=== PATIENT | female | born 1955 | race African-American/Black ===

== ENCOUNTER 2016-06-25 00:03 | Inpatient (IN) | payer MEDICARE ==
[~2016-06-25] VITALS: Ht 152.4 cm; Wt 67.1 kg
[2016-06-25 00:30] VITALS: BP 125/72
[2016-06-25] MEDS ORDERED: ACETAMINOPHEN 325 MG TABLET PO PRN (01:00)
[2016-06-25] MEDS ORDERED: MAG HYDROX/AL HYDROX/SIMETH 30 ML UDC PO PRN (01:00)
[2016-06-25] MEDS ORDERED: MAGNESIUM HYDROXIDE 30 ML UDC PO PRN (01:00)
[2016-06-25] MEDS ORDERED: PRAV40TA3 PO (06:33)
[2016-06-25] MEDS ORDERED: BENZ1TAB7 PO (06:33)
[2016-06-25 08:17] LABS: ALBUMIN 3.2 g/dL (3.4-5.0); BILIRUBIN,TOTAL 0.4 mg/dL (0.2-1.0); CALCIUM, SERUM 8.4 mg/dL (8.5-10.1); CREATININE 0.8 mg/dL (0.6-1.3); POTASSIUM 3.6 mmol/L (3.5-5.1); TOTAL PROTEIN, SERUM 6.1 g/dL (6.4-8.2)
[2016-06-25 09:24] VITALS: BP 100/67
[2016-06-25] MEDS: BENZTROPINE MESYLATE (1 MG) 1 MG TABLET PO SCH ×2 (14:28→16:34)
[2016-06-25] MEDS: risperiDONE 1 MG TABLET PO SCH ×2 (14:28→16:34)
[2016-06-25 15:45] VITALS: BP 106/62
[2016-06-25] MEDS: DIVALPROEX SODIUM 250 MG TABLET.DR PO SCH (16:34)
[2016-06-25 20:00] VITALS: BP 105/64
[2016-06-26] MEDS: TEMAZEPAM 7.5 MG CAPSULE PO PRN (00:52)
[2016-06-26 08:00] VITALS: BP 132/67
[2016-06-26] MEDS: DIVALPROEX SODIUM 250 MG TABLET.DR PO SCH ×3 (08:24→16:20)
[2016-06-26] MEDS: risperiDONE 1 MG TABLET PO SCH ×2 (08:24→16:20)
[2016-06-26] MEDS: BENZTROPINE MESYLATE (1 MG) 1 MG TABLET PO SCH ×2 (08:24→16:20)
[2016-06-26 16:00] VITALS: BP 103/53
[2016-06-26 20:00] VITALS: BP 96/54
[2016-06-27 08:00] VITALS: BP 122/68
[2016-06-27] MEDS: DIVALPROEX SODIUM 250 MG TABLET.DR PO SCH ×3 (08:47→16:54)
[2016-06-27] MEDS: risperiDONE 1 MG TABLET PO SCH ×3 (08:47→17:00)
[2016-06-27] MEDS: BENZTROPINE MESYLATE (1 MG) 1 MG TABLET PO SCH ×2 (08:47→16:54)
[2016-06-27 16:00] VITALS: BP 106/62
[2016-06-27 20:00] VITALS: BP 121/77
[2016-06-27] MEDS: TEMAZEPAM 7.5 MG CAPSULE PO PRN (23:32)
[2016-06-28 08:00] VITALS: BP 134/70
[2016-06-28] MEDS: BENZTROPINE MESYLATE (1 MG) 1 MG TABLET PO SCH ×2 (09:20→17:57)
[2016-06-28] MEDS: DIVALPROEX SODIUM 250 MG TABLET.DR PO SCH ×3 (09:20→17:57)
[2016-06-28] MEDS: risperiDONE 1 MG TABLET PO SCH ×2 (09:20→17:57)
[2016-06-28 16:00] VITALS: BP 98/56
[2016-06-28 20:00] VITALS: BP 102/67
[2016-06-28] MEDS: TEMAZEPAM 7.5 MG CAPSULE PO PRN (21:03)
[2016-06-29 08:00] VITALS: BP 120/69
[2016-06-29] MEDS: DIVALPROEX SODIUM 250 MG TABLET.DR PO SCH ×4 (08:37→17:15)
[2016-06-29] MEDS: risperiDONE 1 MG TABLET PO SCH ×2 (08:37→17:15)
[2016-06-29] MEDS: BENZTROPINE MESYLATE (1 MG) 1 MG TABLET PO SCH ×2 (08:38→17:15)
[2016-06-29 16:00] VITALS: BP 112/69
[2016-06-29 20:13] VITALS: BP 102/99
[2016-06-30 08:00] VITALS: BP 117/72
[2016-06-30] MEDS: DIVALPROEX SODIUM 250 MG TABLET.DR PO SCH ×3 (08:21→17:21)
[2016-06-30] MEDS: BENZTROPINE MESYLATE (1 MG) 1 MG TABLET PO SCH ×2 (08:21→17:20)
[2016-06-30] MEDS: risperiDONE 1 MG TABLET PO SCH ×2 (08:22→17:21)
[2016-06-30] MEDS: LORAZEPAM 0.5 MG TABLET PO PRN (11:19)
[2016-06-30] MEDS ORDERED: LORAZEPAM 1 MG TABLET PO STA (15:20)
[2016-06-30 16:00] VITALS: BP 123/87
[2016-06-30 19:58] VITALS: BP 123/70
[2016-07-01 08:00] VITALS: BP 132/63
[2016-07-01] MEDS: DIVALPROEX SODIUM 250 MG TABLET.DR PO SCH ×4 (09:32→21:08)
[2016-07-01] MEDS: risperiDONE 1 MG TABLET PO SCH ×2 (09:33→17:30)
[2016-07-01] MEDS: BENZTROPINE MESYLATE (1 MG) 1 MG TABLET PO SCH ×2 (09:35→17:28)
[2016-07-01] MEDS: LORAZEPAM 0.5 MG TABLET PO PRN (09:53)
[2016-07-01 16:00] VITALS: BP 124/51
[2016-07-01 21:13] VITALS: BP 94/58
[2016-07-02 08:00] VITALS: BP 105/59
[2016-07-02] MEDS: BENZTROPINE MESYLATE (1 MG) 1 MG TABLET PO SCH ×2 (09:53→16:15)
[2016-07-02] MEDS: risperiDONE 1 MG TABLET PO SCH ×2 (09:53→16:15)
[2016-07-02] MEDS: DIVALPROEX SODIUM 250 MG TABLET.DR PO SCH ×2 (09:53→21:01)
[2016-07-02 16:00] VITALS: BP 101/65
[2016-07-02 19:57] VITALS: BP 113/65
[2016-07-03 08:00] VITALS: BP 100/63
[2016-07-03] MEDS: DIVALPROEX SODIUM 250 MG TABLET.DR PO SCH ×2 (08:22→20:31)
[2016-07-03] MEDS: risperiDONE 1 MG TABLET PO SCH ×2 (08:23→16:50)
[2016-07-03] MEDS: BENZTROPINE MESYLATE (1 MG) 1 MG TABLET PO SCH ×2 (08:23→16:51)
[2016-07-03] MEDS: LORAZEPAM 0.5 MG TABLET PO PRN (12:16)
[2016-07-03 16:00] VITALS: BP 95/57
[2016-07-03 20:00] VITALS: BP 99/63
[2016-07-04 08:00] VITALS: BP 103/62
[2016-07-04] MEDS: BENZTROPINE MESYLATE (1 MG) 1 MG TABLET PO SCH ×2 (08:13→16:39)
[2016-07-04] MEDS: DIVALPROEX SODIUM 250 MG TABLET.DR PO SCH ×2 (08:13→21:39)
[2016-07-04] MEDS: risperiDONE 1 MG TABLET PO SCH ×2 (08:14→16:38)
[2016-07-04 16:10] VITALS: BP 104/63
[2016-07-04 20:00] VITALS: BP 103/50
[2016-07-04] MEDS: TEMAZEPAM 7.5 MG CAPSULE PO PRN (21:39)
[2016-07-05 08:00] VITALS: BP 105/64
[2016-07-05] MEDS: risperiDONE 1 MG TABLET PO SCH ×2 (08:11→16:17)
[2016-07-05] MEDS: DIVALPROEX SODIUM 250 MG TABLET.DR PO SCH ×2 (08:11→21:41)
[2016-07-05] MEDS: BENZTROPINE MESYLATE (1 MG) 1 MG TABLET PO SCH ×2 (08:11→16:17)
[2016-07-05 16:15] VITALS: BP 99/50
[2016-07-05 20:00] VITALS: BP 99/54
[2016-07-05] MEDS: TEMAZEPAM 7.5 MG CAPSULE PO PRN (21:41)
[2016-07-06 08:11] VITALS: BP 100/63
[2016-07-06] MEDS: BENZTROPINE MESYLATE (1 MG) 1 MG TABLET PO SCH ×2 (10:42→18:42)
[2016-07-06] MEDS: DIVALPROEX SODIUM 250 MG TABLET.DR PO SCH ×2 (10:43→21:39)
[2016-07-06] MEDS: risperiDONE 1 MG TABLET PO SCH ×2 (10:44→18:42)
[2016-07-06 15:56] VITALS: BP 101/55
[2016-07-06 19:54] VITALS: BP 116/49
[2016-07-07 08:00] VITALS: BP 112/66
[2016-07-07] MEDS: DIVALPROEX SODIUM 250 MG TABLET.DR PO SCH (08:29)
[2016-07-07] MEDS: BENZTROPINE MESYLATE (1 MG) 1 MG TABLET PO SCH (08:29)
[2016-07-07] MEDS: risperiDONE 1 MG TABLET PO SCH (08:30)
== END 2016-07-07 11:30 | DRG 885 ==
LOC: GPS 00:22
PROVIDERS: ADMIT Psychiatry & Neurology Psychiatry
DX: F20.0 Paranoid schizophrenia (principal); E03.9 Hypothyroidism, unspecified; E11.9 Type 2 diabetes mellitus without complications; I10 Essential (primary) hypertension; H54.8 Legal blindness, as defined in USA; F10.21 Alcohol dependence, in remission; Z59.0 Homelessness; Z85.819 Personal history of malignant neoplasm of unspecified site of lip, oral cavity, and pharynx
CPT/HCPCS: 36415; 80053-TC; 80061-TC; 80164-TC; 82962-TC; 87081-TC